=== PATIENT | female | born 1980 | race Caucasian/White ===

== ENCOUNTER 2025-04-09 09:37 | Outpatient (CLI) | payer OTHER ==
[~2025-04-09 09:37] MED LIST: PRENACARE TABL1 EACH PO
== END 2025-04-09 09:38 | disposition home or self-care (01) ==
LOC: SONOGRAMA 09:37
PROVIDERS: ATTEND Pathology Anatomic Pathology & Clinical Pathology
DX: D34 Benign neoplasm of thyroid gland (principal); E06.3 Autoimmune thyroiditis; E04.1 Nontoxic single thyroid nodule